=== PATIENT | male | born 1935 | race Caucasian/White ===

== ENCOUNTER 2022-05-21 11:26 | Inpatient (IN) ==
[2022-05-21] MEDS ORDERED: INSULIN LISPRO 1 UNIT/0.01 ML UNIT SQ SCH (12:00)
[2022-05-21] MEDS ORDERED: PHENYLEPHRINE 20 MG in 0.9 % SODIUM CHLORIDE 248 ML IV SCH ×2 (12:15→14:07)
--- NOTE | 2022-05-21 12:35 | Nephrology Consult Note ---
HPI Data of Consult Patient: known to practice within the last 3 years Consult date: 05/21/22 Primary Care Provider: Sj Sánchez Consult Narrative Patient Information: Note initiated : 05/21/22 at 12:01 pm Service Date, if different from initiated Date: [] Patient: Brian Reed 86 y/o M admitted on 05/21/22 for ESRD, Acute HD. Chief Complaint: [] Chief complaint: Shortness of breath Reason for consult: Acute hemodialysis cc:: CC: Brian Jo MD I was called earlier this morning from [facility] concerning the patient that I had seen previously but was told that he was in need of emergent dialysis for marked metabolic acidosis, hyperkalemia, pericardial effusion that the referring and's physician insisted did not have tamponade physiology, and blood pressure of 97/60. They were able to place a dialysis catheter and he was transferred from the PCU at [facility] to the ICU here at [facility]. Sadly has had a marked disability in terms of evaluating the patient because of his driving and had no access to a computer but was arranging transfer. This is because this patient's survival is extremely limited and he has a uroepithelial cancer from which he will ultimately if he were to survive this acute episode of hyperkalemia, hypotension, pericardial effusion, and acute on chronic kidney disease. He arrived here I was told that his blood pressure was in the 70s and ultimately a Casey-Synephrine drip and will look for the family to provide guidance but I do not think this is likely to be a survivable situation. Here are the pertinent data: CT 05/21/22 IMPRESSION: 1. Very large pericardial effusion 2. Large right pleural effusion and small left pleural effusion 3. Mild ascites with perisplenic fluid and fluid within the lateral conal space on the left 4. Right ureteral stent. No right hydronephrosis 5. Compression deformities of the T5 and T6 vertebral bodies, unchanged 6. 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) 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) Hydroureter on right (Acute) Ureteral obstruction (Acute) Acute UTI (Acute) CKD (chronic kidney disease) (Acute) Hypertension (Chronic) Hyperlipidemia (Chronic) Gouty arthritis (Chronic) Elevated PSA (Chronic) Prediabetes (Chronic) Arrhythmia (Chronic) Atrial fibrillation (Chronic) Dizziness (Chronic) Chronic renal failure (Chronic) Fatigue (Chronic) Hearing loss (Chronic) Chest pain (Chronic) Polydipsia (Chronic) Idiopathic gout (Chronic) Difficulty concentrating (Chronic) Back pain (Chronic) Joint pain (Chronic) Joint swelling (Chronic) Bleeds easily (Chronic) Easy bruising (Chronic) Type 2 diabetes mellitus without complication (Chronic) Chronic kidney disease, stage 3 (Chronic) 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 I suspect HTN/Vasc disease>>DM>>uric acid nephro jeff Goal BP 130-140/70 Idiopathic gout Irregular heart rate Joint pain Joint swelling Polydipsia Prediabetes Type 2 diabetes mellitus without complication Surgical History No pertinent past surgical history Family History Other Diabetes HTN (hypertension) Social History smoking status: Never smoker alcohol intake frequency: a few times a week substance use type: does not use MEDS/ALLERGIES Home Medications and Allergies Home Medications Medication Instructions Recorded Confirmed Type rosuvastatin 5 mg tablet 5 mg PO HS 06/25/20 05/21/22 History metformin 500 mg tablet 500 mg PO QDAY 05/25/21 05/21/22 History coQ10 (ubiquinol) 100 mg capsule 100 mg PO QDAY 12/22/21 05/21/22 History cyanocobalamin (vitamin B-12) 1,000 mcg PO QDAY 12/22/21 05/21/22 History 1,000 mcg capsule cholecalciferol (vitamin D3) 100 1,000 unit PO DAILY 02/17/22 05/21/22 History mcg (4,000 unit) capsule famotidine 20 mg tablet 10 mg PO QDAY 02/17/22 05/21/22 History apixaban 2.5 mg tablet (Eliquis) 2.5 mg PO BID 03/04/22 05/21/22 History furosemide 40 mg tablet 40 mg PO Q OTHER DAY 03/04/22 05/21/22 History valsartan 160 mg tablet 160 mg PO BID 03/04/22 05/21/22 History bisoprolol fumarate 5 mg tablet 2.5 mg PO QDAY for blood pressure 03/08/22 05/21/22 Rx #30 tabs allopurinol 100 mg tablet 150 mg PO QAM 05/21/22 05/21/22 History amlodipine 10 mg tablet 10 mg PO QDAY 05/21/22 05/21/22 History amlodipine 10 mg-valsartan 160 1 tab PO QAM 05/21/22 05/21/22 History mg-hydrochlorothiazide 12.5 mg tablet terazosin 1 mg capsule 1 mg PO HS 05/21/22 05/21/22 History Allergies Allergy/AdvReac Type Severity Reaction Status Date / Time Penicillins Allergy Intermediate Hives Verified 05/21/22 12:06 venom-honey bee Allergy Intermediate Swelling Verified 05/21/22 12:06 [bee venom (honey bee)] Physical Examination Vital Signs Vital signs: Vital Signs Temp Pulse Pulse Resp BP BP Pulse Ox 05/21/22 18:02 86 18 111/69 94 05/21/22 17:54 87 20 119/78 95 05/21/22 17:46 20 108/87 05/21/22 17:33 92 H 18 110/76 93 05/21/22 17:16 88 18 109/96 92 05/21/22 17:04 87 17 109/56 92 05/21/22 16:31 77 13 99/58 94 05/21/22 16:26 84 17 112/72 95 05/21/22 16:16 81 15 107/87 95 05/21/22 16:15 83 18 94/66 93 05/21/22 14:25 05/21/22 16:23 75 22 97 05/21/22 16:06 79 16 114/83 99 05/21/22 16:01 36.3 C 79 18 118/104 93 05/21/22 15:46 77 18 98/75 93 05/21/22 15:31 68 20 118/83 93 05/21/22 15:22 77 13 116/77 100 05/21/22 15:16 80 13 95/72 96 05/21/22 15:15 83 13 95 05/21/22 15:01 78 13 102/66 95 05/21/22 14:46 84 21 107/49 94 05/21/22 14:00 94 05/21/22 14:31 78 21 112/56 100 05/21/22 14:28 79 18 109/53 93 05/21/22 14:21 74 14 111/53 99 05/21/22 14:18 80 16 109/67 100 05/21/22 14:13 82 22 106/58 97 05/21/22 14:06 80 24 H 99/58 95 05/21/22 14:02 86 22 91/64 98 05/21/22 13:56 85 26 H 70/24 96 05/21/22 13:51 87 25 H 79/49 96 05/21/22 13:49 85 22 80/55 98 05/21/22 13:46 84 21 83/64 95 05/21/22 13:42 77 24 H 79/59 96 05/21/22 13:37 80 21 88/61 95 05/21/22 13:31 36.0 C L 24 H 98/83 05/21/22 13:26 74 21 96/61 95 05/21/22 13:21 22 94/65 05/21/22 13:19 61 25 H 93/61 93 05/21/22 13:15 76 26 H 93/67 95 05/21/22 13:01 56 L 22 96/58 90 05/21/22 12:48 66 23 H 86/62 96 05/21/22 12:31 78 24 H 109/75 95 05/21/22 12:28 68 23 H 99/53 96 05/21/22 12:24 23 H 89/68 05/21/22 12:18 74 22 78/59 96 05/21/22 12:16 59 L 23 H 81/54 97 05/21/22 12:07 75 21 94/72 98 05/21/22 15:10 35.7 C L 84 95/72 05/21/22 14:58 73 102/66 05/21/22 14:45 82 107/49 05/21/22 14:28 88 112/56 05/21/22 14:11 85 106/58 05/21/22 14:04 77 99/58 05/21/22 13:54 86 70/24 05/21/22 13:43 87 83/64 05/21/22 13:29 78 98/83 05/21/22 13:19 35.7 C L 76 93/67 05/21/22 11:45 35.9 C L 77 22 106/56 94 O2 Del Method O2 Flow Rate 05/21/22 18:02 3 05/21/22 17:54 05/21/22 17:46 05/21/22 17:33 05/21/22 17:16 05/21/22 17:04 3 05/21/22 16:31 3 05/21/22 16:26 3 05/21/22 16:16 3 05/21/22 16:15 3 05/21/22 14:25 2 05/21/22 16:23 Room Air 05/21/22 16:06 3 05/21/22 16:01 3 05/21/22 15:46 3 05/21/22 15:31 3 05/21/22 15:22 3 05/21/22 15:16 3 05/21/22 15:15 05/21/22 15:01 05/21/22 14:46 05/21/22 14:00 Oxymask 3 05/21/22 14:31 3 05/21/22 14:28 3 05/21/22 14:21 3 05/21/22 14:18 3 05/21/22 14:13 3 05/21/22 14:06 3 05/21/22 14:02 3 05/21/22 13:56 3 05/21/22 13:51 3 05/21/22 13:49 3 05/21/22 13:46 3 05/21/22 13:42 3 05/21/22 13:37 3 05/21/22 13:31 3 05/21/22 13:26 3 05/21/22 13:21 3 05/21/22 13:19 3 05/21/22 13:15 3 05/21/22 13:01 3 05/21/22 12:48 3 05/21/22 12:31 3 05/21/22 12:28 3 05/21/22 12:24 3 05/21/22 12:18 3 05/21/22 12:16 3 05/21/22 12:07 3 05/21/22 15:10 05/21/22 14:58 05/21/22 14:45 05/21/22 14:28 05/21/22 14:11 05/21/22 14:04 05/21/22 13:54 05/21/22 13:43 05/21/22 13:29 05/21/22 13:19 05/21/22 11:45 Oxymask 3 Intake and Output 05/21/22 05/21/22 05/21/22 05:59 13:59 21:59 Intake Total 5 286 Output Total 1000 Balance 5 -714 Intake: IV 5 46 Levophed 16 mg In Sodium 43 Chloride 0.9% 234 ml @ 10 MCG/ MIN 9.375 mls/hr IV Q24H BENSON Rx #:[id number] Neosynephrine/Vazculep 20 mg In 5 3 Sodium Chloride 0.9% 248 ml @ 0.5 MCG/KG/MIN 31.35 mls/hr IV DUR BENSON Rx#:[id number] Oral 240 Output: Urine Catheter Amount 0 Void Amount 0 Hemodialysis UF 1000 Other: Meal Dinner Percent of Meal Consumed 75% Feeding Ability Assist with Tray Set Up Urine Appearance Uretheral ([place]ora) Sediment Urine Color Uretheral (Z[place]ora) Brown Brown Weight 837.83 kg 83.506 kg Patient Weight 05/22/22 05:59 Weight 83.506 kg General Appearance General appearance: cachectic, moderate distress and chronically ill EENT EENT: PERRL and mucous membranes dry Neck Neck: no JVD and bruit Respiratory Respiratory: wheezing (end expiratory) and rales Cardiovascular Cardiology: no murmurs, no gallops and irregular rhythm Gastrointestinal Gastrointestinal: hypoactive bowel sounds and no guarding Integumentary Integumentary: cool/clammy and ecchymotic Neurologic Neurologic: no focal deficit and CN 3-12 intact Musculoskeletal Musculoskeletal: no clubbing Additional Exam Additional exam: bilateral 2(+) edema A/P Assessment and plan (1) Pericardial effusion: Status: Acute Comment: Large but not hemodynamically compromising. No pulses paradox, no RV collapse on Echo and and tolerated HD which would NEVER happen if tamponade were the issue. The question is what is the cause? >>> gutierrez in and tap/drain it and this is above our level and care and should have been addressed at [facility] prior than attempting transfer to [facility] where we are totally without physicians that can deal with this. That said, here is D/Dx and plan: 1. 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 2. Malignant pericardial effusion. 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 3. 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 CHF - Again LVEF is preserved (2) Metabolic acidosis: Assessment and plan: Combined lactic and renal causes. If lactic acidodisis is due to hypoperfusion, I would expect improvement as bp is better. More worrisome would be decreased hepatic utilization. Dialysis daily Status: Acute (3) Hyperkalemia: Assessment and plan: Due to acute on chronic renal failure and acidosis with intracellular to extracellular shift Plan: Dialysis Status: Acute (4) ESRD needing dialysis: Assessment and plan: I suspect he will be dialysis dependent as right kidney is non-functional due to prolonged obstruction due to ureteral cancer. Status: Acute Time Spent With Patient Time: Total time spent is greater than 50% in coordination of care (as documented) at patient's floor/unit and/or counseling patient: Total time spent with greater than 50% in coordination of care (as documented) at patient's floor/unit and/or counseling patient:: Greater than 70 minutes Attestation: Multiple prolonged discussions with daughter and other family members. Condition is critical and prognosis grim
[2022-05-21] MEDS: 0.9 % SODIUM CHLORIDE 250 ML IV SCH ×3 (13:36→22:31)
[2022-05-21] MEDS ORDERED: DEXTROSE 31 GM ORAL.SUSP PO PRN ×2 (13:47→16:45)
[2022-05-21] MEDS ORDERED: DEXTROSE 50% 50 ML VIAL IV PRN ×2 (13:47→16:45)
[2022-05-21 13:50] LABS: Hepatitis B Surface Antibody POSITIVE (Negative); Hepatitis B Surface Antigen Negative (Negative)
[2022-05-21] MEDS: NOREPINEPHRINE BITARTRATE 16 MG in 0.9 % SODIUM CHLORIDE 234 ML IV SCH (14:00)
[2022-05-21] MEDS: 0.9 % SODIUM CHLORIDE 10 ML SYRINGE IV SCH ×2 (14:11→21:18)
[2022-05-21] MEDS: IPRATROPIUM/ALBUTEROL 3 ML AMPUL.NEB NEB PRN ×2 (16:00→23:03)
--- NOTE | 2022-05-21 16:14 | Internal Medicine Consult Note ---
HPI Data of Consult Consult date: 05/21/22 Primary Care Provider: Sj Sánchez Consult Narrative Patient Information: Note initiated : 05/21/22 at 4:10 pm Service Date, if different from initiated Date: [] Patient: Brian Reed 86 y/o M admitted on 05/21/22 for ESRD, Acute HD. Chief Complaint: [] cc:: CC: Brian oJ MD Patient presents for acute dialysis need. Patient first presented to [place] on the with increasing shortness of breath and weakness. He was found to have acute on chronic kidney disease and decompensated diastolic heart failure. He also was found to have a large pericardial effusion. Also has a recent history of bladder cancer noted in February. Per Dr. Littlejohn's note the treatment would be nephro ureterectomy with possible adjuvant chemotherapy. The patient did not want to undergo that. He has been getting stents by Dr. Littlejohn. And Dr. Littlejohn plan for laser ablation and stent replacement to 3 months from that visit. It was also discussed that the laser ablation would not likely slow the growth of the tumor and at some point was felt that they would be looking into hospice. Patient was also found to have large pericardial effusion that was not felt to be any tamponade physiology. The residential real estate sales manager was consulted at [place]. Patient was diuresed but did not respond and was felt that patient needed hemodialysis and that there was no need for pericardiocentesis at this time but that hemodialysis would be the most appropriate treatment. Patient then went placement of hemodialysis catheter and case discussed with Dr. Jo. Patient is undergoing hemodialysis at this time but became hypotensive and was placed on Levophed Creatinine when he arrived to [place]'s was 4.1 BUN of 78. She also carries a history of chronic atrial fibrillation diabetes. Review of Systems: Pertinent positives above. Complains of back pain. Denies headache/fever/chills/nausea/vomiting/chest or abdominal pain/cdiarrhea. Remaining 10 point review of system reviewed negative PFSH PFSH All Active Problems (Updated 05/21/22 @ 12:06 by Brian Jo MD) Hyperlipidemia (Chronic) Gouty arthritis (Chronic) Elevated PSA (Chronic) Prediabetes (Chronic) Hypertension (Chronic) Arrhythmia (Chronic) Atrial fibrillation (Chronic) Dizziness (Chronic) Chronic renal failure (Chronic) Fatigue (Chronic) Hearing loss (Chronic) Chest pain (Chronic) Polydipsia (Chronic) Difficulty concentrating (Chronic) Back pain (Chronic) Joint pain (Chronic) Joint swelling (Chronic) Bleeds easily (Chronic) Easy bruising (Chronic) Type 2 diabetes mellitus without complication (Chronic) Idiopathic gout (Chronic) Chronic kidney disease, stage 3 (Chronic) 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) Irregular heart rate (Chronic) 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 (Chronic) BPH associated with nocturia (Chronic) Hydronephrosis of right kidney (Acute) CKD stage G3b/A2, GFR 30-44 and albumin creatinine ratio 30-299 mg/g (Acute) Hydroureter on right (Acute) Ureteral obstruction (Acute) Acute UTI (Acute) CKD (chronic kidney disease) (Acute) Anticoagulant long-term use (Acute) 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 I suspect HTN/Vasc disease>>DM>>uric acid nephropathy Goal BP 130-140/70 Idiopathic gout Irregular heart rate Joint pain Joint swelling Polydipsia Prediabetes Type 2 diabetes mellitus without complication Surgical History No pertinent past surgical history Family History Other Diabetes HTN (hypertension) Social History smoking status: Never smoker alcohol intake frequency: a few times a week substance use type: does not use MEDS/ALLERGIES Home Medications and Allergies Home Medications Medication Instructions Recorded Confirmed Type rosuvastatin 5 mg tablet 5 mg PO HS 06/25/20 05/21/22 History metformin 500 mg tablet 500 mg PO QDAY 05/25/21 05/21/22 History coQ10 (ubiquinol) 100 mg capsule 100 mg PO QDAY 12/22/21 05/21/22 History cyanocobalamin (vitamin B-12) 1,000 mcg PO QDAY 12/22/21 05/21/22 History 1,000 mcg capsule cholecalciferol (vitamin D3) 100 1,000 unit PO DAILY 02/17/22 05/21/22 History mcg (4,000 unit) capsule famotidine 20 mg tablet 10 mg PO QDAY 02/17/22 05/21/22 History apixaban 2.5 mg tablet (Eliquis) 2.5 mg PO BID 03/04/22 05/21/22 History furosemide 40 mg tablet 40 mg PO Q OTHER DAY 03/04/22 05/21/22 History valsartan 160 mg tablet 160 mg PO BID 03/04/22 05/21/22 History bisoprolol fumarate 5 mg tablet 2.5 mg PO QDAY for blood pressure 03/08/22 05/21/22 Rx #30 tabs allopurinol 100 mg tablet 150 mg PO QAM 05/21/22 05/21/22 History amlodipine 10 mg tablet 10 mg PO QDAY 05/21/22 05/21/22 History amlodipine 10 mg-valsartan 160 1 tab PO QAM 05/21/22 05/21/22 History mg-hydrochlorothiazide 12.5 mg tablet terazosin 1 mg capsule 1 mg PO HS 05/21/22 05/21/22 History Allergies Allergy/AdvReac Type Severity Reaction Status Date / Time Penicillins Allergy Intermediate Hives Verified 05/21/22 12:06 venom-honey bee Allergy Intermediate Swelling Verified 05/21/22 12:06 [bee venom (honey bee)] EXAM Constitutional Vitals: Temp Pulse Resp BP Pulse Ox O2 Del Method O2 Flow Rate 97.3 F 79 16 114/83 99 3 05/21/22 16:01 05/21/22 16:06 05/21/22 16:06 05/21/22 16:06 05/21/22 16:06 05/21/22 14:00 05/21/22 16:06 Exam: General: Alert, Awake, No acute Distress Eyes/N/T: EOMI, PERRL, Head/Neck: neck supple, normocephalic atraumatic, JVD CV: RRR, No murmurs, normal s1/s2 Pulm: Clear laterally, no wheezing/rhonchi/rales Abd: soft, nontender, +BS x4 Ext: no clubbing/cyanosis, LLE edeam 2-3+, RLE trace edemadema Neuro: Alert, no focal deficits, moves all extremities, CN 2-12 grossly intact, symmetrical strength b/l upper/lower, sensations intact b/l upper/lower Skin: warm/dry DATA Data Completed and Pending Labs: Labs from last 24 hours 05/21/22 05/21/22 05/21/22 16:00 12:29 12:28 POC pH 7.37 POC pCO2 24.6 L POC pO2 62 L POC HCO3 14.3 L POC Total CO2 15.0 L POC ABG Base Excess -11.0 L ABG Lactic Acid 5.5 H* Hgb O2 Saturation 91.0 L Hep Bs Antigen Negative Hep Bs Antibody Positive A Hep B Core Total Ab Pending Hepatitis C Antibody Pending HCV RNA Quant (PCR) Pending HCV RNA PCR log IUs/ml Pending A/P Narrative A/P Narrative: A: *Acute renal failure on CKD III-IV: *Volume overload with Pericardial Effusion, large: -[facility] residential real [facility], did not feel he need pericardiocentsis *Acute on chronic diastolic CHF: -on BB/ARB/lasix/hctz *chronic Afib: on eliquis/BB *HTN: on Norvasc/ARB/BB/hctz *DM: on metformin *Anemia, chronic: *Urothelial carcinoma: Follows Dr. Littlejohn patient did not want treatment other than stents and occasional laser ablation -Per Dr. Littlejohn's note plan would be likely hospice at some point *Goals of care: P: -Volume status/HD per nephro -pending imaging ordered -f/u limited echo to monitor effusion after HD -cont BB if bp allows, hold ARB/Norvasc for hypotension, diuretics per Nepho - -SSI -f/u with Dr. Littlejohn -PT/OT -ppx: cont home eliquis DNR Time Spent With Patient Time: Total time spent is greater than 50% in coordination of care (as documented) at patient's floor/unit and/or counseling patient: Total time spent with greater than 50% in coordination of care (as documented) at patient's floor/unit and/or counseling patient:: Greater than 70 minutes
[2022-05-21] MEDS ORDERED: METOPROLOL TARTRATE 5 MG/5 ML VIAL IV PRN (16:45)
[2022-05-21] MEDS: INSULIN LISPRO 1 UNIT/0.01 ML UNIT SQ SCH ×2 (17:15→21:35)
--- NOTE | 2022-05-21 17:32 | Cat Scan Report ---
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 This was performed at [facility]. Previous abdominal ultrasound dated 05/25/2021 TECHNIQUE: Axial images were obtained through the chest,abdomen and pelvis. Sagittally and coronally reformatted images. FINDINGS: Chest CT: Lungs:Suboptimal evaluation due to patient motion. Patient was unable to suspend respiration. There is a large right pleural effusion. This has increased in size since 02/11/2022. There is a small left pleural effusion. No pulmonary parenchymal consolidation. No evidence for pneumonia. There is no pulmonary parenchymal mass Mediastinum:No mediastinal or hilar lymphadenopathy. Thoracic aorta is negative. No aneurysmal enlargement or dissection. Main pulmonary artery measures 3.3 cm in cross-sectional diameter. This is enlarged and suggests pulmonary arterial hypertension. Heart:There is a large pericardial effusion. This measures approximately 5.8 cm in maximum thickness at the left ventricular apex. This has increased in size since previous examination. There is severe coronary artery calcification. Pleura:Large right pleural effusion and small left pleural effusion. Effusions are larger than on 02/11/2022 Axilla, supraclavicular regions, chest wall:No pathologic axillary or supraclavicular lymphadenopathy Musculoskeletal:Compression deformities of the T5 and T6 vertebral bodies are essentially unchanged since 02/11/2022. Incidental note is made of a T7 vertebral body hemangioma. Sternum is negative. No detectable rib fractures or lytic lesions. Abdomen/Pelvis: Liver:Negative to the limits of noncontrast enhanced examination. No detectable mass. Liver contour is smooth Gallbladder, bilary:Negative. No calcified gallstones. No gallbladder wall thickening or pericholecystic fluid. No dilated bile ducts Spleen:No splenomegaly. Pancreas:No pancreatic mass. No pancreatic duct dilatation. No peripancreatic abnormality Adrenal glands:Negative Kidneys,ureters,bladder:Kidneys are atrophic. There are left renal cysts. There is a right ureteral stent. Right-sided hydronephrosis demonstrated previously has resolved. No hydroureter. No ureteral calculus. Bladder is collapsed. There is a Zamora catheter in place. Bladder wall appears diffusely thickened although is not well evaluated Gastrointestinal:No detectable colonic mass. There is no diverticulitis. Negative small bowel. No mechanical small bowel obstruction. No bowel wall thickening. No focal abnormality. Negative stomach and duodenum. No focal abnormality. Appendix: The appendix is not well visualized. No evidence of appendicitis Vascular:There is calcification of the abdominal aorta. No abdominal aortic aneurysm Lymphatic:No retroperitoneal or pathologic mesenteric adenopathy Mesentery, peritoneum:There is perisplenic fluid. There is fluid within the left lateral conal space. No significant fluid within the pelvis. There is no intra-abdominal abscess. There is no pneumoperitoneum. Reproductive:Prostate is mildly enlarged. Musculoskeletal:No lumbar compression fractures No anterior abdominal wall or inguinal hernia. There is a rounded density in the medial left inguinal canal. This could be the left testicle or fluid within the canal. IMPRESSION: 1. Very large pericardial effusion 2. Large right pleural effusion and small left pleural effusion 3. Mild ascites with perisplenic fluid and fluid within the lateral conal space on the left 4. Right ureteral stent. No right hydronephrosis 5. Compression deformities of the T5 and T6 vertebral bodies, unchanged 6. Atherosclerotic disease including coronary artery calcification The exam was performed using radiation dose optimization techniques including, but not limited to, automated exposure control, adjustment of the mA and/or kV according to patient size and use of iterative reconstruction technique. Interpreted and Authenticated by: Ryland Grimm 05/21/22
[2022-05-21] MEDS ORDERED: ATORVASTATIN 10 MG TABLET PO SCH (21:00)
[2022-05-21] MEDS ORDERED: TERAZOSIN 1 MG CAPSULE PO SCH ×2 (21:00→21:21)
[2022-05-21] MEDS ORDERED: MELATONIN 3 MG TABLET PO SCH (21:00)
[2022-05-21] MEDS ORDERED: FAMOTIDINE 20 MG TABLET PO SCH (21:00)
[2022-05-21] MEDS: HEPARIN 5,000 UNIT/ML VIAL SQ SCH (21:09)
--- NOTE | 2022-05-21 21:45 | Brief Operative Note ---
Brief Operative Note Date of procedure: 05/21/22 Pre-op diagnosis: hyperkalemia, metabolic acidosis Post-op diagnosis: same Procedure: Acute HD with multiple visits Grafts/Implants: No Anesthesia: none Findings: Successful 2 hr HD with 1 liter U/f tolerated procedure but require Norepi and Casey for BP support Improved BP and hemodynamic post procedure Complications: none Surgeon: Brian Jo Estimated blood loss (cc): 11 Specimens Removed/Pathology: none sent Condition: critical Disposition: ICU
[2022-05-21] MEDS ORDERED: diphenhydrAMINE 25 MG CAPSULE PO PRN (22:36)
[2022-05-21] MEDS: ACETAMINOPHEN 500 MG TABLET PO SCH (22:50)
[2022-05-21] MEDS ORDERED: MELATONIN 3 MG TABLET PO ONE (22:54)
[2022-05-21] MEDS ORDERED: diphenhydrAMINE 25 MG CAPSULE ONE (22:54)
[2022-05-22] MEDS ORDERED: LACTATED RINGERS 250 ML IV ONE (00:41)
[2022-05-22] MEDS ORDERED: LORazepam 2 MG/ML VIAL IV ONE (01:13)
[2022-05-22] MEDS: 0.9 % SODIUM CHLORIDE 250 ML IV SCH ×2 (01:18→05:44)
[2022-05-22] MEDS ORDERED: LORazepam 2 MG/ML VIAL ONE (01:25)
[2022-05-22 05:06] LABS: Uric Acid,Urine Random 4.8 mg/dL (37.0-92.0)
[2022-05-22 05:16] LABS: POC Calcium, Ionized 1.01 (1.16-1.32); POC Creatinine 5.1 (0.6-1.2); POC Potassium 5.9 (3.3-5.1)
[2022-05-22] MEDS: 0.9 % SODIUM CHLORIDE 10 ML SYRINGE IV SCH (05:46)
[2022-05-22] MEDS: ACETAMINOPHEN 500 MG TABLET PO SCH (05:48)
[2022-05-22 06:12] LABS: Basophils # (Auto) 0.03 K/mcL (0.00-0.30); Basophils % (Auto) 0.1 % (0.0-2.0); Eosinophils # (Auto) 0 K/mcL (0.00-0.70); Eosinophils % (Auto) 0 % (0.0-7.0); Hematocrit 27.8 % (40.1-51.0); Lymphocytes # (Auto) 0.54 K/mcL (1.50-4.80); Lymphocytes % (Auto) 2.7 % (15.5-49.0); Mean Cell Volume 93.6 fL (80.0-100.0); Mean Corpuscular HGB Conc 32.4 g/dL (31.0-36.0); Mean Platelet Volume 12.1 fL (7.4-10.4); Monocytes # (Auto) 2.23 K/mcL (0.10-0.90); Monocytes % (Auto) 11.1 % (1.0-12.0); Neutrophils % (Auto) 85.3 % (38.0-78.0); Platelet Count 124 K/mcL (140-440); RBC 2.97 M/mcL (4.63-6.08); Red Cell Distribution Width 18.5 % (11.5-14.5); WBC 20.2 K/mcL (4.5-11.0)
[2022-05-22 06:15] LABS: Erythrocyte Sedimentation Rate 3 mm/hr (0-20)
[2022-05-22 06:36] LABS: proBNP 846.6 pg/mL (<450.0)
[2022-05-22 06:37] LABS: Parathyroid Hormone Intact-SO 116.8 pg/mL (15.0-65.0)
[2022-05-22 06:38] LABS: C-Reactive Protein 2.4 mg/dL (0.03-0.80); Uric Acid 7.5 mg/dL (2.5-8.0)
--- NOTE | 2022-05-22 08:00 | Discharge Summary ---
Discharge Provider Provider IMPORTANT FOLLOW-UP INFORMATION FOR PCP: Patient information: Note initiated : 05/22/22 at 7:57 am Service Date, if different from initiated Date: [] Patient: Brian Reed 86 y/o M admitted on 05/21/22 for ESRD, Acute HD. Chief Complaint: [SOB] Date of admission: 05/21/22 11:45 Discharge date: 05/22/22 Primary care physician: Sj Sánchez Admitting clinician: Brian Jo Attending physician on admission: Brian Jo Consults: 05/21/22 15:44 Consult to Physician [CONS] Routine Comment: Consulting Provider: Felipe Smith Reason For Exam: Physician to Consult Attending physician on discharge: Brian Jo COURSE Hospital Course Hospital course: Mr Reed is a 86 y/o pleasant white male with PMH of HTN, DM type 2, gout, Afib, CAD, CKD and other medical issues who is here for follow up He has h/oCKD stage III with microscopic hematuria and proteinuria in the setting of HTN and gout. His urine and serum JOSELINE is negative Was seen by cardiology, and told Dr Washington at last visit that his spironolactone dose increased to 25mg po daily, other antihypertensives at same dose, timings changed. Home BP still fair control in 120-130 systolic with occ spikes, 24 hour monitoring confirmed he has white coat syndrome, his BP at home was in 110-120 systolic and after office visit was very high more than 170/90 range. Labs from outside facility demonstrates stability of his renal function with his serum creatinine of 1.4. Prior creatinine trends are found below:Prior urinalysis showed dipstick positive protein and a random urine protein to creatinine ratio was elevated at 0.5, the remainder of his urinalysis was bland and his parathyroid hormone level was less than 50. He is on dual RAASI, a beta-clark and a calcium channel clark for his blood pressure and what is thought to be diabetic and/or hypertensive nephrosclerosis. He is also on allopurinol and warfarin. He had a renal ultrasound in 2016: FINDINGS: Both kidneys are lower limits of normal in size but are normal in configuration and position: The right is 9.3 x 6 cm and the left is 9.4 x 6 cm. The parenchymal echotexture is elevated compatible with medical renal disease. Scattered cysts are seen in both kidneys - ranging up to 2.3 cm the medial right kidney. A 7 mm hyperechoic nodule inferior pole left kidney is likely a small scar or a small angiomyolipoma. No significant solid lesions. No hydronephrosis. Arterial blood flow is grossly normal on color spectral Doppler. Urinary bladder is 226 cc volume with a 1 23-cc the post void residual. Prostate volume is elevated 93 cc (upper range of normal 30 cc) IMPRESSION: 1. Marked prostate enlargement with a greater than 50% postvoid residual suggesting chronic bladder outlet narrowing. 2. Increased renal echotexture compatible with medical renal disease. Mild bilateral renal atrophy Renal u/S 02/2021 1.Moderate right hydronephrosis. Etiology for hydronephrosis is not apparent. Normally, the ureters are not visualized on ultrasound. Consider noncontrast CT to evaluate for right ureteral stone or other cause for ureteral obstruction. 2. Hyperechoic kidneys compatible with medical renal disease. 3. Bilateral renal cysts 4. Marked prostate enlargement resulting in chronic bladder outlet narrowing with a large post void residual CT May 25, 2021: Moderate hydronephrosis of the right kidney which is unchanged from the prior ultrasound done on 05/06/21. There is an ill-defined transition in the mid ureter where it crosses the iliac vessels.The etiology of the obstruction cannot be identified. Atrophy of both kidneys.This may be related to renal artery stenosis. Diverticulosis, without diverticulitis Small pericardial effusion and mild cardiomegaly Abnormal fullness of the body and tail of the pancreas. This raises the possibility of a pancreatic neoplasm. Urology visit Jul, 2021: Patient is an 85-year-old male with a history of worsening right hydronephrosis and hydroureter due to some obstruction in the right mid to distal ureter. On review of his CT scan there is severe tortuosity and severe dilation of the proximal right ureter with moderate right hydronephrosis. Today we discussed that the neck step in evaluation would be to perform cyst oscopy, right retrograde pyelogram, right ureteroscopy, and right ureteral stent placement in the operating room under anesthesia. The purpose of this procedure would be mostly diagnostic to see where the obstruction is and what might be causing it. We discussed the procedure as well as possible risks including bleeding, infection, and the risks of anesthesia. If he were to do nothing and the obstruction is simply due to extrinsic compression or scar tissue then over time he would continue to lose right renal function and the kidney may eventually stop working. If the obstruction is due to something such as tumor tumor can grow and spread. At this time we do not know the cause of the obstruction and the goal of the next procedure would be to try to figure out what the obstruction is. At age 85 I believe that the decision as to what if anything to do is completely up to him. He is extremely scared of undergoing anesthesia and is not yet sure what he would like to do. He understands the procedure as well as its risks and he will call us to let us know if he wishes to proceed. Serum Creatinine 05/21/22 called by [facility] concerning a clinic patient of mine who they reported needed acute HD for presumed uremic pericarditis. The public health informatician and hospitalist reported Echo with preserved LVEF and no RV collapse or other signs of pericardial tamponade. I said that we could provide acute HD but we have no public health informatician. [facility] arranged for HD catheter placement Within an hour of arrival from [facility] the patient was dialyzed for 2 hours, 1 liter U/F and required increasing pressor support with Neosyneprrine and Norepinephrine. By midnight there was increased RR and he was placed on BiPAP 15/10 with 35% O2 At 0500 hr 05/22/2022: Na 136 K 5.9 CL 108 CO2 14 Glucose 107 BUN 82 Cr 5.1 Attempted HD for 1 hr due to acidosis and hyperkalemia for ~1 hr but patinet mov ing to cause catheter flow to drop and did not want to heparinize so treatement aborted *:[address] [facility] concerning patients condition and plan of care. 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 by Dr Littlejohn at [facility] T2DM Atrial fib Reason for admission: Acute HD Procedures: Acute HD x 2 Pertinent studies/significant findings: As above Complications: none Time Spent with Patient Time attestation: Total time spent providing and/or coordinating discharge services: Time spent: Greater than 30 minutes EXAM Constitutional Vitals: Temp Pulse Resp BP Pulse Ox O2 Del Method O2 Flow Rate 36.4 C 77 18 89/41 98 2 05/22/22 07:35 05/22/22 07:35 05/22/22 07:06 05/22/22 07:35 05/22/22 07:05 05/22/22 00:49 05/22/22 00:01 General appearance: disheveled and mild distress Exam: Moving all extremities on BiPAP Head Head exam: Present normal inspection Eye Eye exam: Present EOMI and PERRL; Absent scleral icterus ENT ENT exam: Present mucous membranes dry Expanded Neck Exam Neck exam: Absent carotid bruit Respiratory Respiratory exam: Present accessory muscle use, decreased breath sounds (absent at right base), respiratory distress and rhonchi; Absent rales or wheezes Cardiovascular Cardiovascular exam: Present irregular rhythm; Absent rubs or +S3 Additional comments: Neck veins prominent to earlobe at 30 degrees HOB elevation GI/Abdominal GI/Abdominal exam: Present soft and diminished bowel sounds Rectal Rectal exam: Present deferred Additional comments: folet Extremities Exam Extremities exam: Absent calf tenderness or pedal edema (1(+)) Neurological Exam Neurological exam: Present CN II-XII intact Additional comments: follow simple commands Psychiatric Psychiatric exam: Present anxious Skin Skin exam: Present dry; Absent petechiae or rash Discharge Data Data Completed and Pending Procedures and tests throughout hospitalization: Acute HD x 2 CT Chest/ABD/PELVIS Labs on day of discharge: Labs from last 24 hours 05/22/22 05/22/22 05/22/22 05:12 05:06 05:06 WBC RBC Hgb Hct POC Hct 27.0 L MCV MCH MCHC RDW Plt Count MPV Immature Gran % (Auto) Neut % (Auto) Lymph % (Auto) [place] % (Auto) Eos % (Auto) Baso % (Auto) Lymph # (Auto) [place] # (Auto) Eos # (Auto) Baso # (Auto) Immature Gran # Absolute Neutrophils ESR POC pH POC pCO2 POC pO2 POC HCO3 POC Total CO2 14.0 L POC ABG Base Excess ABG Lactic Acid Hgb O2 Saturation POC Sodium 136 POC Potassium 5.9 H* POC Chloride 108 POC BUN 82 H POC Creatinine 5.1 H POC Glucose 107 H Uric Acid POC WB Ioniz Calcium 1.01 L Magnesium C-Reactive Protein NT-Pro-B Natriuret Pep Procalcitonin 0.81 H PTH Intact Ur Random Creatinine Ur Random Sodium Ur Random Uric Acid Rheumatoid Factor Pending LILA Titer Pending LILA FA Screen Pending LILA Pattern Pending SS-A Antibody Pending SS-B Antibody Pending Sm ([place]) Antibody Pending SM/PEDIATRIC OPHTHALMOLOGIST IgG Antibody Pending Scl-70 Antibody Pending Double Strand DNA Ab Pending Ribosomal P Prot Ab Pending Thyroid Peroxidase Ab Pending Complement C3c Pending Complement C4c Pending Hep Bs Antigen Hep Bs Antibody Hep B Core Total Ab Hepatitis C Antibody HCV RNA Quant (PCR) HCV RNA PCR log IUs/ml 05/22/22 05/22/22 05/22/22 05:06 05:06 05:06 WBC 20.2 H RBC 2.97 L Hgb 9.0 L Hct 27.8 L POC Hct MCV 93.6 MCH 30.3 MCHC 32.4 RDW 18.5 H Plt Count 124 L MPV 12.1 H Immature Gran % (Auto) 0.8 H Neut % (Auto) 85.3 H Lymph % (Auto) 2.7 L [place] % (Auto) 11.1 Eos % (Auto) 0 Baso % (Auto) 0.1 Lymph # (Auto) 0.54 L [place] # (Auto) 2.23 H Eos # (Auto) 0 Baso # (Auto) 0.03 Immature Gran # 0.17 H Absolute Neutrophils 17.37 H ESR 3 POC pH POC pCO2 POC pO2 POC HCO3 POC Total CO2 POC ABG Base Excess ABG Lactic Acid Hgb O2 Saturation POC Sodium POC Potassium POC Chloride POC BUN POC Creatinine POC Glucose Uric Acid 7.5 POC WB Ioniz Calcium Magnesium 3.2 H C-Reactive Protein 2.40 H NT-Pro-B Natriuret Pep 846.6 H Procalcitonin PTH Intact 116.8 H Ur Random Creatinine Ur Random Sodium Ur Random Uric Acid Rheumatoid Factor LILA Titer LILA FA Screen LILA Pattern SS-A Antibody SS-B Antibody Sm ([place]) Antibody SM/PEDIATRIC OPHTHALMOLOGIST IgG Antibody Scl-70 Antibody Double Strand DNA Ab Ribosomal P Prot Ab Thyroid Peroxidase Ab Complement C3c Complement C4c Hep Bs Antigen Hep Bs Antibody Hep B Core Total Ab Hepatitis C Antibody HCV RNA Quant (PCR) HCV RNA PCR log IUs/ml 05/22/22 05/22/22 05/21/22 01:55 01:54 16:00 WBC RBC Hgb Hct POC Hct MCV MCH MCHC RDW Plt Count MPV Immature Gran % (Auto) Neut % (Auto) Lymph % (Auto) [place] % (Auto) Eos % (Auto) Baso % (Auto) Lymph # (Auto) [place] # (Auto) Eos # (Auto) Baso # (Auto) Immature Gran # Absolute Neutrophils ESR POC pH 7.37 POC pCO2 24.6 L POC pO2 62 L POC HCO3 14.3 L POC Total CO2 15.0 L POC ABG Base Excess -11.0 L ABG Lactic Acid 5.5 H* Hgb O2 Saturation 91.0 L POC Sodium POC Potassium POC Chloride POC BUN POC Creatinine POC Glucose Uric Acid POC WB Ioniz Calcium Magnesium C-Reactive Protein NT-Pro-B Natriuret Pep Procalcitonin PTH Intact Ur Random Creatinine 35.1 L Ur Random Sodium 125 Ur Random Uric Acid 4.8 L Rheumatoid Factor LILA Titer LILA FA Screen LILA Pattern SS-A Antibody SS-B Antibody Sm ([place]) Antibody SM/PEDIATRIC OPHTHALMOLOGIST IgG Antibody Scl-70 Antibody Double Strand DNA Ab Ribosomal P Prot Ab Thyroid Peroxidase Ab Complement C3c Complement C4c Hep Bs Antigen Hep Bs Antibody Hep B Core Total Ab Hepatitis C Antibody HCV RNA Quant (PCR) HCV RNA PCR log IUs/ml 05/21/22 05/21/22 12:29 12:28 WBC RBC Hgb Hct POC Hct MCV MCH MCHC RDW Plt Count MPV Immature Gran % (Auto) Neut % (Auto) Lymph % (Auto) [place] % (Auto) Eos % (Auto) Baso % (Auto) Lymph # (Auto) [place] # (Auto) Eos # (Auto) Baso # (Auto) Immature Gran # Absolute Neutrophils ESR POC pH POC pCO2 POC pO2 POC HCO3 POC Total CO2 POC ABG Base Excess ABG Lactic Acid Hgb O2 Saturation POC Sodium POC Potassium POC Chloride POC BUN POC Creatinine POC Glucose Uric Acid POC WB Ioniz Calcium Magnesium C-Reactive Protein NT-Pro-B Natriuret Pep Procalcitonin PTH Intact Ur Random Creatinine Ur Random Sodium Ur Random Uric Acid Rheumatoid Factor LILA Titer LILA FA Screen LILA Pattern SS-A Antibody SS-B Antibody Sm ([place]) Antibody SM/PEDIATRIC OPHTHALMOLOGIST IgG Antibody Scl-70 Antibody Double Strand DNA Ab Ribosomal P Prot Ab Thyroid Peroxidase Ab Complement C3c Complement C4c Hep Bs Antigen Negative Hep Bs Antibody Positive A Hep B Core Total Ab Pending Hepatitis C Antibody Pending HCV RNA Quant (PCR) Pending HCV RNA PCR log IUs/ml Pending Impressions Impressions: 1. Pericardial effusion appears to have been present on CT 01/2022 at [facility] and in rthe course of 4 months increased to current size and with early tamponade clinically but not on 05/21/22 Cardiac echo from [facility]. This could be due to Uremia but in January he had CKD G3 not uremia. His eKG did not show typical finding of acute pericarditis. Nothing to suggest and infectious etiology. Metastatic pericardial effuse is a possibility as is autoimmune. The preserved LVEF would argue against myocarditis/pericarditis. 2. Baseline CKD 3 with developement of oliganuric ART and Urine Na >100 suggests ATN (hypoperfusion, ARBs, diuretic prehosp[italization) Right kidney non-functional due to high grade and prolonged obstruction by uroepitheal CA with local laser and stent in place. 3. If he is to survive, emergent pericardial drainage and [facility] has agreed to accept patient for same. 4. Diagnostic studies of pericardial fluid are needed including auotimmune and cytologic studies 5. If not a malignant pericardial fluid, he would need a cuffed HD catheter to be dialyzed as an outpatient 6. All the above including high mortality and chronic morbidity and dialysis for life were explained with daughter Additional Comments Additional comments: COMPARISON: Previous chest CT scan dated 02/11/2022. This was performed at [facility]. Previous abdominal ultrasound dated 05/25/2021 TECHNIQUE: Axial images were obtained through the chest,abdomen and pelvis. Sagittally and coronally reformatted images. FINDINGS: Chest CT: Lungs:Suboptimal evaluation due to patient motion. Patient was unable to suspend respiration. There is a large right pleural effusion. This has increased in size since 02/11/2022. There is a small left pleural effusion. No pulmonary parenchymal consolidation. No evidence for pneumonia. There is no pulmonary parenchymal mass Mediastinum:No mediastinal or hilar lymphadenopathy. Thoracic aorta is negative. No aneurysmal enlargement or dissection. Main pulmonary artery measures 3.3 cm in cross-sectional diameter. This is enlarged and suggests pulmonary arterial hypertension. Heart:There is a large pericardial effusion. This measures approximately 5.8 cm in maximum thickness at the left ventricular apex. This has increased in size since previous examination. There is severe coronary artery calcification. Pleura:Large right pleural effusion and small left pleural effusion. Effusions are larger than on 02/11/2022 Axilla, supraclavicular regions, chest wall:No pathologic axillary or supraclavicular lymphadenopathy Musculoskeletal:Compression deformities of the T5 and T6 vertebral bodies are essentially unchanged since 02/11/2022. Incidental note is made of a T7 vertebral body hemangioma. Sternum is negative. No detectable rib fractures or lytic lesions. Abdomen/Pelvis: Liver:Negative to the limits of noncontrast enhanced examination. No detectable mass. Liver contour is smooth Gallbladder, bilary:Negative. No calcified gallstones. No gallbladder wall thickening or pericholecystic fluid. No dilated bile ducts Spleen:No splenomegaly. Pancreas:No pancreatic mass. No pancreatic duct dilatation. No peripancreatic abnormality Adrenal glands:Negative Kidneys,ureters,bladder:Kidneys are atrophic. There are left renal cysts. There is a right ureteral stent. Right-sided hydronephrosis demonstrated previously has resolved. No hydroureter. No ureteral calculus. Bladder is collapsed. There is a Zamora catheter in place. Bladder wall appears diffusely thickened although is not well evaluated Gastrointestinal:No detectable colonic mass. There is no diverticulitis. Negative small bowel. No mechanical small bowel obstruction. No bowel wall thickening. No focal abnormality. Negative stomach and duodenum. No focal abnormality. Appendix: The appendix is not well visualized. No evidence of appendicitis Vascular:There is calcification of the abdominal aorta. No abdominal aortic aneurysm Lymphatic:No retroperitoneal or pathologic mesenteric adenopathy Mesentery, peritoneum:There is perisplenic fluid. There is fluid within the left lateral conal space. No significant fluid within the pelvis. There is no intra-abdominal abscess. There is no pneumoperitoneum. Reproductive:Prostate is mildly enlarged. Musculoskeletal:No lumbar compression fractures No anterior abdominal wall or inguinal hernia. There is a rounded density in the medial left inguinal canal. This could be the left testicle or fluid within the canal. IMPRESSION: 1. Very large pericardial effusion 2. Large right pleural effusion and small left pleural effusion 3. Mild ascites with perisplenic fluid and fluid within the lateral conal space on the left 4. Right ureteral stent. No right hydronephrosis 5. Compression deformities of the T5 and T6 vertebral bodies, unchanged 6. Atherosclerotic disease including coronary artery calcification The exam was performed using radiation dose optimization techniques including, but not limited to, automated exposure control, adjustment of the mA and/or kV according to patient size and use of iterative reconstruction technique. Discharge Plan Patient/Caregiver Discharge Instructions Additional Instructions: bed rest Prescriptions: No Action bisoprolol fumarate 5 mg tablet 2.5 mg PO QDAY Qty: 30 6RF metformin 500 mg tablet 500 mg PO QDAY rosuvastatin 5 mg tablet 5 mg PO HS Eliquis 2.5 mg tablet 2.5 mg PO BID coQ10 (ubiquinol) 100 mg Capsule 100 mg PO QDAY cyanocobalamin (vitamin B-12) 1,000 mcg Capsule 1,000 mcg PO QDAY furosemide 40 mg tablet 40 mg PO Q OTHER DAY famotidine 20 mg Tablet 10 mg PO QDAY cholecalciferol (vitamin D3) 100 mcg (4,000 unit) Capsule 1,000 unit PO DAILY valsartan 160 mg tablet 160 mg PO BID allopurinol 100 mg Tablet 150 mg PO QAM [id number] 10-160-12.5 mg Tablet 1 tab PO QAM terazosin 1 mg capsule 1 mg PO HS amlodipine 10 mg Tablet 10 mg PO QDAY Follow Up Plan Disposition: [facility] Discharge Orders: Discharge Order (Routine); Ordered 05/22/22 Ordered By: Brian Jo Discharge Comment: Critically ill for higher level of care QUALITY VTE Deep Vein Thrombosis/Pulmonary Embolism Present on Admission: No
[2022-05-22] MEDS: INSULIN LISPRO 1 UNIT/0.01 ML UNIT SQ SCH (08:50)
[2022-05-22] MEDS ORDERED: BISOPROLOL 5 MG TABLET PO SCH (09:00)
[2022-05-22] MEDS: NOREPINEPHRINE BITARTRATE 16 MG in 0.9 % SODIUM CHLORIDE 234 ML IV SCH (09:45)
[2022-05-22] MEDS ORDERED: VASOPRESSIN 20 UNIT in DEXTROSE 5% IN WATER 99 ML IV SCH (10:00)
[2022-05-22] MEDS ORDERED: 0.9 % SODIUM CHLORIDE 250 ML IV SCH (10:00)
[2022-05-22] MEDS: HEPARIN 5,000 UNIT/ML VIAL SQ SCH (11:07)
[2022-05-22 15:21] LABS: Hepatitis C Virus Antibody NON-REACTIVE (NON-REACTIVE)
[2022-05-23] MEDS ORDERED: ALLOPURINOL 100 MG TABLET PO SCH (09:00)
--- NOTE | 2022-05-25 10:12 | EKG ---
[facility] Test Date: 2022-05-21 Pat Name: Brian Reed Department: ICU Room: 120B Gender: Male Immunologist: : [id number] Requested By: Brian Jo Order Number: [id number] Reading MD: Sandeep Guerra Measurements Intervals [place] Rate: 83 P: [place]: QRS: -33 QRSD: 110 T: 48 QT: 388 QTc: 456 Interpretive Statements Age not entered, assumed to be 51 years old for purpose of ECG interpretation Atrial fibrillation Low voltage, extremity and precordial leads Consider anterior infarct Baseline wander in lead(s) V4 Electronically Signed On 05-25-2022 10:12:16 PDT by Sandeep Guerra /[id number]
== END 2022-05-22 10:04 | disposition short-term general hospital (02) | DRG 682 ==
LOC: ICU 11:45
PROVIDERS: ADMIT Internal Medicine Nephrology; ATTEND Internal Medicine Nephrology